=== PATIENT | male | born 1980 | race Caucasian/White ===

== ENCOUNTER 2016-06-28 01:18 | Emergency (ER) | payer OTHER ==
[2016-06-28 01:32] VITALS: BP 127/70; PULSE 63; RESP 16; TEMP 98.1
[2016-06-28] MEDS ORDERED: DIPH,PERTUS(ACELL)TETVAC-LF 0.5 ML VIAL IM ONE (01:36)
--- NOTE | 2016-06-28 01:39 | ED ---
Upper Extremity HPI - General Chief Complaint: Extremity Injury, Upper Stated Complaint: [facility] thumb lac Time Seen by Provider: 06/28/16 01:34 Source: patient, RN notes reviewed Mode of arrival: ambulatory Limitations: no limitations - History of Present Illness Initial Comments: 36-year-old male presents emergency Department with chief complaint of right hand first digit thumb laceration. Patient states that she is cutting piece metal band saw he's not sure if this all or the metal cut his thumb. He is unsure when his last tetanus was. Patient states that his full range of motion , denies any paresthesias. Patient offers no other injuries. Place: work - Related Data Previous Rx's Medication Instructions Recorded Cephalexin [Keflex] 500 mg PO Q6HR #28 cap 06/28/16 Allergies Allergy/AdvReac Type Severity Reaction Status Date / Time hops Allergy Anaphylaxis Verified 06/28/16 01:32 Review of Systems ROS Statement: Those systems with pertinent positive or pertinent negative responses have been documented in the HPI. ROS Other: All systems not noted in ROS Statement are negative. Past Medical History Past Medical History: No Reported History History of Any Multi-Drug Resistant Organisms: None Reported Additional Past Surgical History / Comment(s): WISDOM TEETH, lipoma removal Past Psychological History: No Psychological Hx Reported Smoking Status: Current every day smoker Past Alcohol Use History: Occasional Past Drug Use History: None Reported General Exam Limitations: no limitations General appearance: alert, in no apparent distress Head exam: Present: atraumatic, normocephalic, normal inspection Respiratory exam: Present: normal lung sounds bilaterally. Absent: respiratory distress, wheezes, rales, rhonchi, stridor Cardiovascular Exam: Present: regular rate, normal rhythm, normal heart sounds. Absent: systolic murmur, diastolic murmur, rubs, gallop, clicks Extremities exam: Present: other (right hand 1st digit, 1cm superficial laceration full ROM, NV intact) Skin exam: Present: warm, dry Course Vital Signs 06/28/16 01:29 Temperature 98.1 F Pulse Rate 63 Respiratory 16 Rate Blood Pressure 127/70 O2 Sat by Pulse 96 Oximetry Medical Decision Making - Medical Decision Making 36-year-old male presented for thumb laceration. This is a superficial laceration does not require closure with sutures. Patient was placed on 7 days of antibiotics. Return parameters were discussed. Patient's tetanus was updated Disposition Clinical Impression: Laceration of thumb, right Disposition: HOME SELF-CARE Condition: Stable Instructions: Laceration (ED) Additional Instructions: Please return to the Emergency Department if symptoms worsen or any other concerns. Prescriptions: Cephalexin [Keflex] 500 mg PO Q6HR #28 cap Referrals: None,Stated [Primary Care Provider] - 1-2 days Time of Disposition: 01:47
[2016-06-28] MEDS ORDERED: CEPHALEXIN 500 MG CAP PO STA (01:46)
== END 2016-06-28 02:22 | disposition home or self-care (01) ==
LOC: EC 01:18
DX: S61.011A Laceration without foreign body of right thumb without damage to nail, initial encounter (principal); F17.200 Nicotine dependence, unspecified, uncomplicated; Z23 Encounter for immunization; Z91.09 Other allergy status, other than to drugs and biological substances; W45.8XXA Other foreign body or object entering through skin, initial encounter; Y99.0 Civilian activity done for income or pay; Y92.69 Other specified industrial and construction area as the place of occurrence of the external cause
CPT/HCPCS: 90471; 90715; 99283

== ENCOUNTER 2016-07-20 13:17 | Emergency (ER) | payer BC, OTHER ==
[2016-07-20 13:28] VITALS: BP 115/75; PULSE 62; RESP 18; TEMP 97.9
--- NOTE | 2016-07-20 13:59 | ED ---
Animal Bite HPI - General Chief Complaint: Animal Bite Stated Complaint: dog bite Time Seen by Provider: 07/20/16 13:44 Source: patient, RN notes reviewed Mode of arrival: ambulatory Limitations: no limitations - History of Present Illness Initial Comments: 36-year-old male present emergency from for left hand, wrist dog bite. This was his own dog up-to-date on vaccinations. Patient is up-to-date on his tetanus with the last few weeks. Patient denies any paresthesias no decreased range of motion no other injuries. - Related Data Previous Rx's Medication Instructions Recorded Cephalexin [Keflex] 500 mg PO Q6HR #28 cap 06/28/16 Amoxicillin/Potassium Clav 1 tab PO Q12HR #20 tab 07/20/16 [Augmentin 875-125 Tablet] Allergies Allergy/AdvReac Type Severity Reaction Status Date / Time hops Allergy Anaphylaxis Verified 07/20/16 13:25 Review of Systems ROS Statement: Those systems with pertinent positive or pertinent negative responses have been documented in the HPI. ROS Other: All systems not noted in ROS Statement are negative. Past Medical History Past Medical History: No Reported History History of Any Multi-Drug Resistant Organisms: None Reported Additional Past Surgical History / Comment(s): WISDOM TEETH, lipoma removal Past Psychological History: No Psychological Hx Reported Smoking Status: Current every day smoker Past Alcohol Use History: Occasional Past Drug Use History: None Reported General Exam Limitations: no limitations General appearance: alert, in no apparent distress Respiratory exam: Present: normal lung sounds bilaterally. Absent: respiratory distress, wheezes, rales, rhonchi, stridor Cardiovascular Exam: Present: regular rate, normal rhythm, normal heart sounds. Absent: systolic murmur, diastolic murmur, rubs, gallop, clicks Extremities exam: Present: other (Left wrist full range of motion and full strength of all digits of his left hand neurovascular intact to once some lacerations to his left wrist region with puncture licona) Neurological exam: Present: alert, oriented X3, CN II-XII intact. Absent: motor sensory deficit Course Vital Signs 07/20/16 13:25 Temperature 97.9 F Pulse Rate 62 Respiratory 18 Rate Blood Pressure 115/75 O2 Sat by Pulse 98 Oximetry Procedures - Laceration Laceration #1 Consent Obtained: verbal consent Indication: laceration Site: lower extremity (Left wrist) Size (cm): 1 Description: linear Depth: simple, single layer Anesthetic Used: lidocaine 1%, without epi Anesthesia Technique: local infiltration Amount (mls): 2 Pre-repair: wound explored, irrigated extensively, deep structures intact Type of Sutures: nylon Size of Sutures: 4-0 Number of Sutures: 2 Technique: simple, interrupted Patient Tolerated Procedure: well, no complications Laceration #2 Consent Obtained: verbal consent Indication: laceration Site: upper extremity (Left wrist) Size (cm): 1 Description: linear Depth: simple, single layer Anesthetic Used: lidocaine 1%, without epi Anesthesia Technique: local infiltration Amount (mls): 2 Pre-repair: wound explored, irrigated extensively, deep structures intact Type of Sutures: nylon Size of Sutures: 4-0 Number of Sutures: 2 Technique: simple, interrupted Patient Tolerated Procedure: well, no complications Medical Decision Making - Medical Decision Making 36-year-old male presented for left wrist dog bite. He had 2 larger lacerations which were semi-deep. These were thoroughly cleaned and soaked. Patient wounds were approximated by left loosely and this was informed to the patient. Patient was given strict wound care instructions and return parameters. Patient will have sutures in 7-10 days and return if symptoms worsen patient was placed on Augmentin. Disposition Clinical Impression: Dog bite Disposition: HOME SELF-CARE Condition: Stable Instructions: Animal Bite (ED) Additional Instructions: Please return to the Emergency Department if symptoms worsen or any other concerns. Prescriptions: Amoxicillin/Potassium Clav [Augmentin 875-125 Tablet] 1 tab PO Q12HR #20 tab Referrals: None,Stated [Primary Care Provider] - 1-2 days Time of Disposition: 13:59
== END 2016-07-20 14:14 | disposition home or self-care (01) ==
LOC: EC 13:17
DX: S61.552A Open bite of left wrist, initial encounter (principal); F17.200 Nicotine dependence, unspecified, uncomplicated; Z91.048 Other nonmedicinal substance allergy status; W54.0XXA Bitten by dog, initial encounter
CPT/HCPCS: 12001; 99283

== ENCOUNTER → 2019-10-12 | Outpatient (CLI) | payer BC ==
--- NOTE | 2019-10-14 12:00 | US ---
EXAMINATION TYPE: US venous doppler duplex LE BI DATE OF EXAM: 10/12/2019 2:37 PM COMPARISON: NONE CLINICAL HISTORY: 39-year-old male M79.662 pain in LT lower limb. SIDE PERFORMED: Right TECHNIQUE: The lower extremity deep venous system is examined utilizing real time linear array sonog yaquelin with graded compression, doppler sonography and color-flow sonography. FINDINGS: VESSELS IMAGED: External Iliac Vein (EIV) Common Femoral Vein Deep Femoral Vein Greater Saphenous Vein * Femoral Vein Popliteal Vein Small Saphenous Vein * Proximal Calf Veins (* superficial vessels) Right Leg: Negative for DVT Left Leg: Negative for DVT IMPRESSION: No evidence for DVT within the bilateral lower extremities imaged from the groin to the upper calves.
== END | disposition home or self-care (01) ==
LOC: RADUSWWP 14:02
PROVIDERS: ATTEND Family Medicine
DX: M79.662 Pain in left lower leg (principal)
CPT/HCPCS: 93970

== ENCOUNTER → 2019-11-23 | Outpatient (CLI) | payer BC | END | disposition home or self-care (01) | LOC: LABWHC1 13:16 | PROVIDERS: ATTEND Emergency Medicine | DX: Z20.828 Contact with and (suspected) exposure to other viral communicable diseases (principal) | CPT/HCPCS: U0003; C9803 ==

== ENCOUNTER 2023-08-07 12:25 | Emergency (ER) | payer BC ==
[2023-08-07 12:31] VITALS: RESP 18; TEMP 97.7
[2023-08-07] MEDS: ACETAMINOPHEN TAB 325 MG TAB PO STA (12:57)
--- NOTE | 2023-08-07 13:05 | ED ---
Fall HPI - General Chief Complaint: Fall Stated Complaint: Fall-L rib injury,SOB Time Seen by Provider: 08/07/23 13:04 Source: patient, RN notes reviewed Mode of arrival: ambulatory Limitations: no limitations - History of Present Illness Initial Comments: 43-year-old male presented to the ER with chief complaint of a fall. Patient reports he was walking his dog earlier today and the dog took off after a squirrel. He states he did not let go of the leash and was pull onto a boulder along the sidewalk. He states he landed on his left ribs and has been experiencing pain since. He does report mild shortness of breath and pain with inspiration. He denies any head injury, loss of consciousness or other complaints. - Related Data Previous Rx's Medication Instructions Recorded Cephalexin [Keflex] 500 mg PO Q6HR #28 cap 06/28/16 Amoxicillin/Potassium Clav 1 tab PO Q12HR #20 tab 07/20/16 [Augmentin 875-125 Tablet] Allergies Allergy/AdvReac Type Severity Reaction Status Date / Time hops Allergy Anaphylaxis Verified 08/07/23 12:32 Review of Systems ROS Statement: Those systems with pertinent positive or pertinent negative responses have been documented in the HPI. ROS Other: All systems not noted in ROS Statement are negative. Past Medical History Past Medical History: No Reported History Additional Past Medical History / Comment(s): Knee issues History of Any Multi-Drug Resistant Organisms: None Reported Additional Past Surgical History / Comment(s): WISDOM TEETH, lipoma removal Past Psychological History: No Psychological Hx Reported Smoking Status: Never smoker Past Alcohol Use History: Occasional Past Drug Use History: None Reported General Exam Limitations: no limitations General appearance: alert, in no apparent distress Respiratory exam: Present: normal lung sounds bilaterally, chest wall tenderness (Right anterior lateral ribs. Symmetrical wall motion with inspiration and expiration. No contusions or erythema). Absent: respiratory distress, wheezes, rales, rhonchi, stridor Cardiovascular Exam: Present: regular rate, normal rhythm, normal heart sounds. Absent: systolic murmur, diastolic murmur, rubs, gallop, clicks Extremities exam: Present: normal inspection, full ROM, normal capillary refill. Absent: tenderness, pedal edema, joint swelling, calf tenderness Skin exam: Present: warm, dry, intact, normal color. Absent: rash Course Vital Signs 08/07/23 08/07/23 12:27 13:57 Temperature 97.7 F Pulse Rate 67 80 Respiratory 18 18 Rate Blood Pressure 137/84 132/78 O2 Sat by Pulse 98 100 Oximetry Medical Decision Making - Medical Decision Making Was pt. sent in by a medical professional or institution (, JING, BALANCE SHEET ANALYST, urgent care, hospital, or group home...) When possible be specific @ -No Did you speak to anyone other than the patient for history (EMS, parent, family, police, friend...)? What history was obtained from this source @ -No Did you review nursing and triage notes (agree or disagree)? Why? @ -I reviewed and agree with nursing and triage notes Were old charts reviewed (outside hosp., previous admission, EMS record, old EKG, old radiological studies, urgent care reports/EKG's, group home records)? Report findings @ -No old charts were reviewed Differential Diagnosis (chest pain, altered mental status, abdominal pain women, abdominal pain men, vaginal bleeding, weakness, fever, dyspnea, syncope, headache, dizziness, GI bleed, back pain, seizure, CVA, palpatations, mental health, musculoskeletal)? @ -Differential Musculoskeletal: Muscular strain, contusion, ligament sprain, fracture, arthritis, septic arthritis, bursitis, cellulitis, muscle spasm, nerve compression, DVT, arterial occlusion, herpes zoster, electrolyte abnormality, tumor.... This is not meant to be in all inclusive list EKG interpreted by me (3pts min.). @ -None X-rays interpreted by me (1pt min.). @ -Left ribs AP chest x-ray interpreted by me remarkable for a irregularity of the left anterior sixth rib, concerning of fracture. CT interpreted by me (1pt min.). @ -None done U/S interpreted by me (1pt. min.). @ -None done What testing was considered but not performed or refused? (CT, X-rays, U/S, labs)? Why? @ -None What meds were considered but not given or refused? Why? @ -None Did you discuss the management of the patient with other professionals (professionals i.e. , JING, BALANCE SHEET ANALYST, lab, RT, psych nurse, elementary school social worker, director title, teacher, program officer, patient case coordinator)? Give summary @ -No Was smoking cessation discussed for >3mins.? @ -No Was critical care preformed (if so, how long)? @ -No Were there social determinants of health that impacted care today? How? (Homelessness, low income, unemployed, alcoholism, drug addiction, transportation, low edu. Level, literacy, decrease access to med. care, shelter, rehab)? @ -No Was there de-escalation of care discussed even if they declined (Discuss DNR or withdrawal of care, Hospice)? DNR status @ -No What co-morbidities impacted this encounter? (DM, HTN, Smoking, COPD, CAD, Cancer, CVA, ARF, Chemo, Hep., AIDS, mental health diagnosis, sleep apnea, morbid obesity)? @ -None Was patient admitted / discharged? Hospital course, mention meds given and route, prescriptions, significant lab abnormalities, going to OR and other pertinent info. @ -Discharged. 43 year old male presenting to the ER with a cheif complaint of a fall. Vitals stable. Exam remarkable for tenderness to left anterior lateral ribs. No erythema or contusions present. Symmetrical chest wall movement with inspiration and expiration. No evidence of flail chest. Patient denies any other injuries. X-rays obtained remarkable for a left sixth rib step-off concerning of a fracture. Patient received by mouth Tylenol for pain control in the ER. Results discussed with patient, all questions answered. Incentive spirometer given with instructions. Tylenol 3 starter pack given for pain control. Advise close follow-up with PCP. Return parameters discussed. Patient discharged in stable condition. Case discussed with ED attending, Dr. Hook. Undiagnosed new problem with uncertain prognosis? @ -No Drug Therapy requiring intensive monitoring for toxicity (Heparin, Nitro, Insulin, Cardizem)? @ -No Were any procedures done? @ -No Diagnosis/symptom? @ -Rib fracture Acute, or Chronic, or Acute on Chronic? @ -Acute Uncomplicated (without systemic symptoms) or Complicated (systemic symptoms)? @ -Uncomplicated Side effects of treatment? @ -No Exacerbation, Progression, or Severe Exacerbation? @ -No Poses a threat to life or bodily function? How? (Chest pain, [place], [place], pneumonia, PE, COPD, DKA, ARF, appy, cholecystitis, CVA, Diverticulitis, Homicidal, Suicidal, threat to staf notef... and all critical care pts) @ -No - Radiology Data Radiology results: report reviewed, image reviewed Disposition Clinical Impression: Fall, Rib fracture Disposition: HOME SELF-CARE Condition: Stable Instructions (If sedation given, give patient instructions): How to Use an Incentive Spirometer (ED), Rib Fracture (ED) Additional Instructions: Recommend using incentive spirometer hourly. Continue with [id number] Tylenol and Motrin for pain control. Follow-up with PCP. Return to the ER for new or worsening concerns. Is patient prescribed a controlled substance at d/c from ED?: No Referrals: Gavino Taylor DO [Primary Care Provider] - 1-2 days Time of Disposition: 13:41
--- NOTE | 2023-08-07 13:26 | XR ---
EXAMINATION TYPE: XR ribs LT w pa chest xray, 5 views DATE OF EXAM: 08/07/2023 Comparison: None Clinical History: 43-year-old male fall and pain Findings: Heart normal size. Aorta and vasculature within normal limits. No pneumothorax or pleural effusion. T here are some mild patchy density at the lower lung and in both sides. Slight cortical step-off involving the left anterior sixth rib. Impression: 1. Slight cortical step-off involving the left anterior sixth rib. Correlate for any focal pain to ex clude a subtle nondisplaced fracture here. 2. Mild patchy bibasilar density, likely atelectasis. Otherwise, no acute cardiopulmonary process.
[2023-08-07] MEDS: ACET/COD 300 MG/30 MG STARTER PACK 6 TAB BTL PO STA (13:54)
[2023-08-07 13:58] VITALS: BP 132/78; PULSE 80
== END 2023-08-07 13:58 | disposition home or self-care (01) ==
LOC: EC 12:25
DX: S22.31XA Fracture of one rib, right side, initial encounter for closed fracture (principal); Z88.8 Allergy status to other drugs, medicaments and biological substances; X50.0XXA Overexertion from strenuous movement or load, initial encounter
CPT/HCPCS: 99283